=== PATIENT | female | born 1955 | race Caucasian/White ===

== ENCOUNTER 2017-08-11 15:43 | Emergency (ER) | payer BC ==
--- NOTE | 2017-08-11 15:59 | EDPHY ---
H & P Stated Complaint: l calf pain/tightness since thursday without trauma Source: Patient Exam Limitations: No limitations - Personal History Current Tetanus/Diphtheria Vaccine: Yes - Medical/Surgical History Hx Asthma: No Hx Chronic Respiratory Disease: No Hx Diabetes: No Hx Cardiac Disease: No Hx Renal Disease: No Hx Cirrhosis: No Hx Alcoholism: No Hx HIV/AIDS: No Hx Splenectomy or Spleen Trauma: No Other PMH: denies - Social History Smoking Status: Current every day smoker Time Seen by Provider: 08/11/17 15:54 HPI/ROS: HPI: This 62-year-old female who presents with Chief Complaint: l calf pain/tightness since thursday without trauma Location: left calf Quality: Pain Duration: 3 days Signs and Symptoms: no injury, no radiation, no numbness, no weakness, no tingling, no decreased range of motion, no swelling, + pain Timing: Sudden onset Severity: [id number] Context: Patient is a tobacco user, and 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 Nothing makes it better or worse. She tried a heating pad with no relief. Does suffer from osteoporosis and that her annual infusion on July 31. Approximately 1 week ago she went on a 1 [address] ride. She is postmenopausal. She denies short of breath complications, chest pain, lower extremity swelling. No history of restless leg syndrome. Wears good supportive footwear while at work. Modifying Factors: heating pad Comment: ROS: see HPI Constitutional: No fever, no chills, no weight loss Eyes: No blurred vision Respiratory: No shortness of breath, no cough Cardiovascular: No chest pain Gastrointestinal: No nausea, no vomiting no diarrhea Genitourinary: No dysuria Extremities: No myalgias Neurologic: No weakness, no numbness Skin: No rashes Hematologic: No bruising, no bleeding MEDICAL/SURGICAL/SOCIAL HISTORY: Medical history: Generally healthy. Does not take any regular medications. Surgical history: Denies Social history: Employed as snack bar cashier. CONSTITUTIONAL: Nontoxic appearing well-developed nourished adult white female , awake and alert, no obvious distress HEENT: Atraumatic and normocephalic, PERRL, EOMI. Tympanic membranes clear. Oropharynx clear, no exudate and moist pink mucosa. Airway patent. No lymphadenopathy. No meningismus. Cardiovascular: Normal S1/S2, regular rate, regular rhythm, without murmur rub or gallop. PULMONARY/CHEST: Symmetrical and nontender. Clear to auscultation bilaterally. Good air movement. No accessory muscle usage. ABDOMEN: Soft, nondistended, nontender, no rebound, no guarding, no peritoneal signs, no masses or organomegaly. No CVAT. EXTREMITIES: 2/2 DP and PT pulses, strength 5/5, + left calf tenderness to palpation. No palpable cord. No varicose veins. Left KNEE: no effusion, no medial and lateral joint line tenderness, full extension to 180, flexion to 120 , no pain with varus and valgus exam. no deformities, no clubbing, no cyanosis or edema. RLE and LLE equal in size. NEUROLOGICAL: no focal neuro deficits. GCS 15. SKIN: Warm and dry, no erythema. no rash. Good capillary refill. (Cecy Bills) Constitutional: Initial Vital Signs Temperature (C) 36.8 C 08/11/17 15:47 Heart Rate 79 08/11/17 15:47 Respiratory Rate 17 08/11/17 15:47 Blood Pressure 139/54 H 08/11/17 15:47 O2 Sat (%) 98 08/11/17 15:47 O2 Delivery Mode Room Air Allergies/Adverse Reactions: anesthesia Allergy (Uncoded 08/11/17 15:44) Home Medications: Medication Instructions Recorded BENADRYL 08/11/17 CALCI-MIX 08/11/17 Magnesium 08/11/17 Methimazole 08/11/17 Omeprazole 08/11/17 Prozac 10 MG (*) 08/11/17 Vitamin D3 08/11/17 Zoledronic Acid 08/11/17 Medical Decision Making ED Course/Re-evaluation: 615-this patient was seen and examined by me. Laboratory results discussed with the patient. Ultrasound and left tibia/fibula x-ray is normal. On exam, normal inspection, tenderness over the posterior aspect of the mid calf, no swelling. Consistent with muscular strain. Ibuprofen instructions given. (Meggan Giron) Left lower extremity ultrasound ordered No signs of neurovascular compromise/tenting of skin/compartment syndrome/ extremities and joints examined above and below area of concern and are neurovascularly intact/gouty arthropathy/cellulitis/ischemia Called by radiologist who advised no signs of deep venous thrombosis Left knee x-ray my read no significant degenerative changes; effusion labs ordered and show no electrolyte abnormalities This patient was seen under the supervision of my primary supervising physician. I evaluated care for this patient independently. Patient's presentation, labs/imaging, treatment and plan of care were discussed with secondary supervising physician. 1715: End of shift. Signed out to Dr. Giron pending lab results. Suspect muscular strain. (Cecy Bills) Differential Diagnosis: Leg swelling including but not limited to hypoalbuminemia, congestive heart failure, cor pulmonale, chronic venous stasis and DVT. (Cecy Bills) - Data Points Laboratory Results: Laboratory Results 08/11/17 17:35 08/11/17 17:35 Departure - Departure Disposition: Home, Routine, Self-Care Clinical Impression: Muscle strain of muscle of posterior left lower leg Condition: Good Instructions: Muscle Strain (ED), RICE Therapy (ED) Additional Instructions: Ultrasound does NOT show any blood clot in your leg. Take Tylenol 650 mg every 4 hours and/or Ibuprofen 600 mg every 8 hours with food as needed for pain. Referrals: Sierra Silvestre MD [Primary Care Provider] - As per Instructions Stand Alone Forms: Work Excuse
[2017-08-11 17:47] LABS: % IMMATURE GRANULYOCYTES 0.3 % (0.0-1.1); ABSOLUTE IMMATURE GRANULOCYTES 0.03 10^3/uL (0.00-0.10); ADD DIFF? NO; ADD MORPH? NO; ADD SCAN? NO; ATYPICAL LYMPHOCYTE FLAG 10 (0-99); FRAGMENT RBC FLAG 0 (0-99); HEMATOCRIT 36.6 % (38.0-47.0); HEMOGLOBIN 12.4 g/dL (12.6-16.3); LEFT SHIFT FLG 0 (0-99); LIPEMIA HEMOLYSIS FLAG 90 (0-99); MEAN CELL HEMOGLOBIN 30.5 pg (27.9-34.1); MEAN CELL HEMOGLOBIN CONCENTR. 33.9 g/dL (32.4-36.7); MEAN CELL VOLUME 89.9 fL (81.5-99.8); MEAN PLATELET VOLUME 8.9 fL (8.7-11.7); PLATELET CLUMPS FLAG 20 (0-99); PLATELET COUNT 342 10^3/uL (150-400); RED BLOOD CELL COUNT 4.07 10^6/uL (4.18-5.33); RED CELL DISTRIBUTION WIDTH 13.2 % (11.5-15.2)
[2017-08-11 17:51] VITALS: BP 139/68; PULSE 68; RESP 18; O2SAT 97
[2017-08-11 18:03] LABS: ANION GAP 11 mEq/L (8-16); CALCIUM 8.7 mg/dL (8.5-10.4); CARBON DIOXIDE 21 mEq/l (22-31); CHLORIDE 106 mEq/L (97-110); CREATININE 0.5 mg/dL (0.6-1.0); GLOMERULAR FILTRATION RATE > 60; GLUCOSE 85 mg/dL (70-100); MAGNESIUM 2.1 mg/dL (1.6-2.3); POTASSIUM 4.3 mEq/L (3.5-5.2); SODIUM 138 mEq/L (134-144)
[2017-08-11 18:16] VITALS: TEMP 98.4
== END 2017-08-11 18:18 | disposition home or self-care (01) ==
DX: S86.912A Strain of unspecified muscle(s) and tendon(s) at lower leg level, left leg, initial encounter (principal); F17.200 Nicotine dependence, unspecified, uncomplicated; X50.1XXA Overexertion from prolonged static or awkward postures, initial encounter; Y99.0 Civilian activity done for income or pay

== ENCOUNTER → 2018-01-12 | Outpatient (CLI) | payer BC | LOC: FIMAGING 07:59 | PROVIDERS: ATTEND Internal Medicine Endocrinology, Diabetes & Metabolism | DX: Z12.31 Encounter for screening mammogram for malignant neoplasm of breast (principal); Z13.820 Encounter for screening for osteoporosis; M81.0 Age-related osteoporosis without current pathological fracture ==

== ENCOUNTER → 2018-05-25 | Outpatient (CLI) | payer BC, OTHER | LOC: FIMAGING 09:20 | PROVIDERS: ATTEND Internal Medicine | DX: Z12.2 Encounter for screening for malignant neoplasm of respiratory organs (principal); R91.8 Other nonspecific abnormal finding of lung field; Z87.891 Personal history of nicotine dependence ==

== ENCOUNTER → 2018-12-14 | Outpatient (CLI) | payer BC | LOC: FIMAGING 07:26 | PROVIDERS: ATTEND Internal Medicine | DX: R91.1 Solitary pulmonary nodule (principal); R91.8 Other nonspecific abnormal finding of lung field; Z72.0 Tobacco use ==